=== PATIENT | female | born 1980 | race Two or more races ===

== ENCOUNTER 2018-08-04 01:41 | Observation (INO) | payer MEDICAID ==
[~2018-08-04 01:41] MED LIST: PRENTAB79
[2018-08-04] MEDS ORDERED: hydrALAZINE HCL 20 MG/ML VL ONE ×4 (01:55→02:27)
[2018-08-04] MEDS ORDERED: MAGNESIUM SULFATE 100 ML IV ONE (01:55)
[2018-08-04] MEDS ORDERED: MAGNESIUM SULFATE 40MG/ML 1,000 ML IV ONE (01:56)
[2018-08-04] MEDS ORDERED: MAGNESIUM SULFATE 100 ML IV STA (02:07)
[2018-08-04] MEDS ORDERED: LACTATED RINGER'S 1,000 ML IV SCH (02:07)
[2018-08-04] MEDS ORDERED: MAGNESIUM SULFATE 40MG/ML 1,000 ML IV SCH (02:07)
[2018-08-04] MEDS ORDERED: hydrALAZINE HCL 20 MG/ML VL IV ONE ×2 (02:11→05:15)
[2018-08-04] MEDS ORDERED: AMPICILLIN SOD 2GM INJ 2 GM in SODIUM CHL 0.9% 100 ML IV ONE (02:19)
[2018-08-04] MEDS ORDERED: BETAMETHASONE ACET (6MG/ML) 5ML VIAL IM ONE (02:19)
[2018-08-04] MEDS ORDERED: LABETALOL HCL 5 MG/ML 4ML SYRINGE IV ONE (02:23)
[2018-08-04] MEDS ORDERED: BETAMETHASONE ACET (6MG/ML) 5ML VIAL ONE (02:26)
[2018-08-04] MEDS ORDERED: AMPICILLIN SOD 1 GM VL ONE (02:26)
[2018-08-04] MEDS ORDERED: LABETALOL HCL 5 MG/ML ML 20ML VIAL IV ONE (02:32)
[2018-08-04 03:04] LABS: INR 0.81 (0.9-1.15); Prothrombin Time 8.8 sec (9.27-12.13)
[2018-08-04 03:15] LABS: Alcohol, Urine < 3.0 mg/dL (0-5); Amphetamine Screen, Urine POSITIVE (NEGATIVE); Barbiturate Scree,Urine NEGATIVE (NEGATIVE); Benzodiazephine Screen, Urine NEGATIVE (NEGATIVE); Cannabinoid Screen, Urine NEGATIVE (NEGATIVE); Cocaine Screen, Urine NEGATIVE (NEGATIVE); Opiate Scree,Urine NEGATIVE (NEGATIVE); Phencyclidine Screen, Urine NEGATIVE (NEGATIVE)
[2018-08-04 03:15] LABS: Basophils # (auto) 0.1 uL; Basophils % (auto) 0.4 % (0.0-2.0); Eosinophils # (auto) 0.2 uL; Eosinophils % (auto) 1.4 % (0.0-7.0); Hematocrit 35.2 % (36.0-46.0); Hemoglobin 11.8 g/dL (12.2-16.2); Lymphocytes # (auto) 1.7 uL; Lymphocytes % (auto) 13.2 % (10.0-50.0); Mean Corpuscular Hemoglobin 29.1 pg (28.0-32.0); Mean Corpuscular Hgb Conc. 33.5 g/dL (32.0-36.0); Mean Corpuscular Volume 86.9 fL (80.0-100.0); Monocytes # (auto) 0.8 uL; Monocytes % (auto) 6.3 % (0.0-12.0); Neutrophils # (auto) 9.9 uL; Neutrophils % (auto) 78.7 % (37.0-80.0); Nucleated Red Blood Cells % 0.5 %; Platelet Count (auto) 100 10^3/uL (140-450); Red Blood Cells 4.05 10^6/uL (4.0-5.20); Red Cell Distribution Width 15.5 % (11.8-14.3); White Blood Cell 12.6 10^3/uL (4.4-10.8)
[2018-08-04 03:16] LABS: Albumin 1.7 g/dL (3.4-5.0); BUN/Creatinine Ratio 16.7; Bilirubin, Total 0.9 mg/dL (0.2-1.0); Calcium 8.2 mg/dL (8.5-10.1); Potassium 3.1 mmol/L (3.5-5.1); Total Protein 5.9 g/dL (6.4-8.2); Uric Acid 7.8 mg/dL (2.6-6.0)
[2018-08-04 03:26] LABS: Urine Bacteria MANY /hpf (None Seen); Urine Blood 3+ /uL (Negative); Urine Mucus FEW (None Seen); Urine Specific Gravity 1.016 (1.001-1.035); Urine WBC 43 /hpf (0 - 5)
== END 2018-08-04 03:44 | disposition home or self-care (01) | DRG 566 ==
LOC: LDRP 01:41
PROVIDERS: ADMIT Obstetrics & Gynecology; ATTEND Obstetrics & Gynecology
DX: O13.3 Gestational [pregnancy-induced] hypertension without significant proteinuria, third trimester (principal); O99.323 Drug use complicating pregnancy, third trimester; F15.90 Other stimulant use, unspecified, uncomplicated; O26.893 Other specified pregnancy related conditions, third trimester; R00.2 Palpitations; R51 Headache; R06.02 Shortness of breath; O21.2 Late vomiting of pregnancy; O09.523 Supervision of elderly multigravida, third trimester; Z3A.29 29 weeks gestation of pregnancy
CPT/HCPCS: 36415; 51702; 59025; 76805; 76815; 80053; 80307; 81001; 84550; 85025; 85610; 85730; 86850; 86900; 86901; 96365; 96375; G0378; J0290; J0360; J0702; J3475; J3490; 96361; 96366; 96372; 96374

== ENCOUNTER 2018-11-20 21:51 | Emergency (ER) | payer MEDICAID ==
[~2018-11-20] VITALS: Ht 154.9 cm; Wt 81.6 kg
[2018-11-20] MEDS ORDERED: SODIUM CHLORIDE 0.9% 2,000 ML IV ONE (23:15)
[2018-11-20] MEDS ORDERED: ONDANSETRON HCL 4 MG/2 ML VIAL IV ONE (23:15)
[2018-11-20 23:38] LABS: Basophils # (auto) 0 uL; Basophils % (auto) 0.2 % (0.0-2.0); Eosinophils # (auto) 0 uL; Eosinophils % (auto) 0.1 % (0.0-7.0); Hematocrit 37.6 % (36.0-46.0); Hemoglobin 12.5 g/dL (12.2-16.2); Lymphocytes # (auto) 1.2 uL; Lymphocytes % (auto) 5.8 % (10.0-50.0); Mean Corpuscular Hemoglobin 28.2 pg (28.0-32.0); Mean Corpuscular Hgb Conc. 33.3 g/dL (32.0-36.0); Mean Corpuscular Volume 84.5 fL (80.0-100.0); Monocytes # (auto) 1.4 uL; Monocytes % (auto) 6.6 % (0.0-12.0); Neutrophils # (auto) 18.9 uL; Neutrophils % (auto) 87.3 % (37.0-80.0); Platelet Count (auto) 429 10^3/uL (140-450); Red Blood Cells 4.45 10^6/uL (4.0-5.20); Red Cell Distribution Width 14.5 % (11.8-14.3); White Blood Cell 21.6 10^3/uL (4.4-10.8)
[2018-11-20 23:56] LABS: Alanine Aminotransferase 19 U/L (13-56); Albumin 3.6 g/dL (3.4-5.0); Anion Gap 12 (5-15); Aspartate Aminotransferase 12 U/L (15-37); BUN/Creatinine Ratio 21.6; Blood Alcohol < 3.0 mg/dL (0-5); Blood Urea Nitrogen 21 mg/dL (7-18); Calcium 8.6 mg/dL (8.5-10.1); Carbon Dioxide 22 mmol/L (21-32); Chloride 104 mmol/L (98-107); GFR African American 83 mL/min; GFR Non-African American 68 mL/min; Glucose 198 mg/dL (74-106); Potassium 3.2 mmol/L (3.5-5.1); Sodium 138 mmol/L (136-145)
[2018-11-21 00:01] LABS: Alkaline Phosphatase 91 U/L (45-117); Bilirubin, Total 0.2 mg/dL (0.2-1.0); Total Protein 7.7 g/dL (6.4-8.2)
[2018-11-21] MEDS ORDERED: cefTRIAXone 1GM/50ML D5W 50 ML IV ONE (01:00)
[2018-11-21] MEDS ORDERED: ONDANSETRON HCL 4 MG/2 ML VIAL IV ONE (03:45)
[2018-11-21 03:58] LABS: Amphetamine Screen, Urine NEGATIVE (NEGATIVE); Barbiturate Scree,Urine NEGATIVE (NEGATIVE); Benzodiazephine Screen, Urine NEGATIVE (NEGATIVE); Cannabinoid Screen, Urine NEGATIVE (NEGATIVE); Cocaine Screen, Urine NEGATIVE (NEGATIVE); Opiate Scree,Urine NEGATIVE (NEGATIVE); Phencyclidine Screen, Urine NEGATIVE (NEGATIVE)
[2018-11-21 04:00] LABS: Urine Bacteria MANY /hpf (None Seen); Urine Blood Negative /uL (Negative); Urine Mucus FEW (None Seen); Urine Specific Gravity 1.015 (1.001-1.035); Urine WBC 17 /hpf (0 - 5); Urine WBC Clumps PRESENT /hpf (None Seen)
[2018-11-21] MEDS ORDERED: SODIUM CHLORIDE 0.9% 1,000 ML IV ONE (04:00)
[2018-11-21 04:52] VITALS: BP 128/88
[2018-11-22] MEDS ORDERED: cefTRIAXone 1GM/50ML D5W 50 ML IV ONE (06:00)
== END 2018-11-21 05:13 | disposition home or self-care (01) ==
LOC: EDBD 21:51 → ER 21:51
DX: R41.82 Altered mental status, unspecified (principal); N39.0 Urinary tract infection, site not specified; I10 Essential (primary) hypertension
CPT/HCPCS: 36415; 80053; 80307; 80320; 81001; 82962; 84484; 85025; 96361; 96374; 96375; 96376; 99284; J0696; J2405; J7030